=== PATIENT | female | born 1995 | race Caucasian/White ===

== ENCOUNTER 2022-09-24 12:12 | Inpatient (IN) ==
[2022-09-24] MEDS ORDERED: MEPERIDINE 50 MG/1 ML VIAL IV PRN (12:23)
[2022-09-24] MEDS ORDERED: TRANEXAMIC ACID 1,000 MG in SODIUM CHLORIDE 0.9% 100 ML IV PRN (12:23)
[2022-09-24] MEDS ORDERED: ONDANSETRON 4 MG/2 ML VIAL IV PRN (12:23)
[2022-09-24] MEDS ORDERED: OXYTOCIN/LR 20 UNIT/1,000 ML BAG IV ONE (12:23)
[2022-09-24] MEDS ORDERED: METHYLERGONOVINE 0.2 MG/1 ML AMP IM PRN (12:23)
[2022-09-24] MEDS ORDERED: BUTORPHANOL 2 MG/ML VIAL IV PRN (12:23)
[2022-09-24] MEDS ORDERED: miSOPROStoL 200 MCG TABLET RECTAL PRN (12:23)
[2022-09-24] MEDS ORDERED: CARBOPROST TROMETHAMINE 250 MCG/ML AMP IM PRN (12:23)
[2022-09-24 12:50] LABS: Basophils % 0.2 % (0.0-0.8); Eosinophils # 0.1 10*3/uL (0.0-0.87); Eosinophils % 0.5 % (0.00-10.9); Hematocrit 33.6 VOL% (35.7-47.0); Hemoglobin 10.9 GM/DL (12.0-16.0); Immature Granulocytes % 0.5 %; Immature Granulocytes Absolute 0.06 #; Lymphocytes # 1.6 10*3/uL (1.4-4.0); Lymphocytes % 13.3 % (21.3-54.2); Mean Corpuscular HGB Conc 32.4 GM/DL (32-36); Mean Corpuscular Volume 89.6 FL (87-102); Mean Platelet Volume 11.1 FL (9.6-12.0); Monocytes % 8.4 % (1.7-12.7); Neutrophils % 77.1 % (38.7-73.9); Platelet Count 267 T/CUMM (130-400); Red Blood Count 3.75 MC/CUMM (3.8-5.5); Red Cell Distribution Width 13.4 % (9.3-17.3); White Blood Count 12.15 T/CUMM (4-12)
[2022-09-24] MEDS: LACTATED RINGERS 1,000 ML IV SCH ×2 (13:49→21:44)
[2022-09-24] MEDS ORDERED: AMPICILLIN INJ 2,000 MG in SODIUM CHLORIDE 0.9% 100 ML IV ONE (17:25)
[2022-09-24] MEDS ORDERED: ZALEPLON 5 MG CAPSULE PO PRN (18:07)
[2022-09-24] MEDS: AMPICILLIN INJ 1,000 MG in SODIUM CHLORIDE 0.9% 100 ML IV SCH (21:20)
[2022-09-24] MEDS ORDERED: TERBUTALINE 1 MG/1 ML VIAL SUBCUT ONE (21:59)
[2022-09-25] MEDS: AMPICILLIN INJ 1,000 MG in SODIUM CHLORIDE 0.9% 100 ML IV SCH ×5 (01:24→17:29)
[2022-09-25] MEDS: LACTATED RINGERS 1,000 ML IV SCH ×2 (01:27→17:47)
[2022-09-25] MEDS: OXYTOCIN/LR 20 UNIT/1,000 ML BAG IV SCH ×2 (08:22→21:50)
[2022-09-25] MEDS ORDERED: diphenhydrAMINE 50 MG/1 ML VIAL IV PRN ×2 (14:01)
[2022-09-25] MEDS ORDERED: ONDANSETRON 4 MG/2 ML VIAL IV ONE (14:01)
[2022-09-25] MEDS ORDERED: NALOXONE 0.4 MG/ML VIAL IV PRN (14:01)
[2022-09-25] MEDS ORDERED: LACTATED RINGERS 1,000 ML IV ONE (14:01)
[2022-09-25] MEDS ORDERED: FAMOTIDINE 20 MG/2 ML VIAL IV ONE (14:01)
[2022-09-25] MEDS ORDERED: ePHEDrine 50 MG/ML VIAL IV PRN (14:01)
[2022-09-25] MEDS ORDERED: CITRIC ACID/SODIUM CITRATE 30 ML UDCUP PO ONE (14:01)
[2022-09-25] MEDS ORDERED: PROMETHAZINE 25 MG/1 ML VIAL IM ONE (14:01)
[2022-09-25] MEDS ORDERED: hydrOXYzine HCL 25 MG/1 ML VIAL IM PRN (14:01)
[2022-09-25] MEDS ORDERED: fentaNYL 2 MCG/ROPIV 0.2% EPID 100 ML EPIDURAL SCH (14:30)
[2022-09-25 16:02] LABS: Bilirubin,Urine Negative (Negative); Blood, Urine Negative (Negative); Glucose,Urine (UA) Negative (Negative); Ketones,Urine 15 mg/dL (Negative); Nitrite,Urine Negative (Negative); Protein,Urine Negative (Negative); Urine Appearance Clear (Clear); Urine Color Yellow (Yellow); Urine Specific Gravity 1.015 (1.001-1.035); Urine Urobilinogen 0.2 eU/dL (<2.0)
[2022-09-25 16:08] LABS: Mucus,Urine Occasional /LPF (Occasional); RBC,Urine <1 /HPF (0-4); Squamous Epithelial Cell,Urine Occasional /HPF (0-10)
[2022-09-25 20:24] LABS: Cord Venous Blood HCO3 20.2 MMOL/L; Cord Venous Blood PCO2 38.7 MMHG; Cord Venous Blood PO2 29.1
[2022-09-25] MEDS: KETOROLAC 30 MG/1 ML VIAL IV SCH (22:00)
[2022-09-25] MEDS ORDERED: BENZOCAINE 20%/MENTHOL 0.5% SPRAY 56 GM CAN TOP PRN (22:25)
[2022-09-25] MEDS ORDERED: LANOLIN 50% CREAM 0.3 OZ TUBE TOP PRN (22:25)
[2022-09-25] MEDS ORDERED: MEASLES/MUMPS/RUBELLA VACCINE 0.5 ML VIAL SUBCUT ONE (22:25)
[2022-09-25] MEDS ORDERED: oxyCODONE/ACETAMINOPHEN 5-325 MG TABLET PO PRN (22:25)
[2022-09-25] MEDS ORDERED: WITCH HAZEL PADS 100/JAR TOP PRN (22:25)
[2022-09-25] MEDS ORDERED: HYDROCORTISONE 2.5% RECTAL CREAM 30 GM TUBE TOP PRN (22:25)
[2022-09-25] MEDS ORDERED: OXYTOCIN/LR 20 UNIT/1,000 ML BAG IV ONE (22:25)
[2022-09-25] MEDS ORDERED: RHO(D) IMMUNE GLOBULIN 300 MCG SYRINGE IM ONE (22:25)
[2022-09-25] MEDS ORDERED: BISACODYL 10 MG SUPP RECTAL PRN (22:25)
[2022-09-25] MEDS ORDERED: ACETAMINOPHEN 325 MG TABLET PO PRN (22:25)
[2022-09-25] MEDS ORDERED: DIPH/TET/ACEL PERT BOOSTER VACCINE 0.5 ML VIAL IM ONE (22:25)
[2022-09-25] MEDS: DOCUSATE SODIUM 100 MG CAPSULE PO SCH (22:47)
[2022-09-25] MEDS: oxyCODONE/ACETAMINOPHEN 5-325 MG TABLET PO PRN (23:32)
[2022-09-26] MEDS: KETOROLAC 30 MG/1 ML VIAL IV SCH ×4 (04:17→14:57)
[2022-09-26 05:14] LABS: Basophils % 0.1 % (0.0-0.8); Eosinophils # 0.1 10*3/uL (0.0-0.87); Eosinophils % 0.6 % (0.00-10.9); Hematocrit 29.9 VOL% (35.7-47.0); Hemoglobin 9.5 GM/DL (12.0-16.0); Immature Granulocytes % 0.5 %; Immature Granulocytes Absolute 0.06 #; Lymphocytes # 1.9 10*3/uL (1.4-4.0); Lymphocytes % 16.1 % (21.3-54.2); Mean Corpuscular HGB Conc 31.8 GM/DL (32-36); Mean Platelet Volume 11.1 FL (9.6-12.0); Monocytes # 1.4 10*3/uL (0.11-0.8); Monocytes % 12.3 % (1.7-12.7); Neutrophils % 70.4 % (38.7-73.9); Platelet Count 213 T/CUMM (130-400); Red Blood Count 3.25 MC/CUMM (3.8-5.5); Red Cell Distribution Width 13.6 % (9.3-17.3); White Blood Count 11.66 T/CUMM (4-12)
[2022-09-26] MEDS: DOCUSATE SODIUM 100 MG CAPSULE PO SCH ×2 (09:13→19:47)
[2022-09-26] MEDS ORDERED: RHO(D) IMMUNE GLOBULIN 300 MCG SYRINGE IM ONE (13:00)
[2022-09-26] MEDS: oxyCODONE/ACETAMINOPHEN 5-325 MG TABLET PO PRN (13:12)
[2022-09-27] MEDS: DOCUSATE SODIUM 100 MG CAPSULE PO SCH ×2 (05:12→08:29)
[2022-09-27] MEDS: IBUPROFEN 800 MG TABLET PO SCH ×2 (05:13→09:53)
[2022-09-27 07:21] VITALS: BP 94/50
[2022-09-27] MEDS ORDERED: MULTIVITAMIN (PRENATAL) TABLET PO SCH (09:00)
== END 2022-09-27 13:38 | disposition home or self-care (01) | DRG 807 ==
LOC: N.LD 12:12 → N.OB 09-25 22:20
PROVIDERS: ADMIT Obstetrics & Gynecology; ATTEND Obstetrics & Gynecology